=== PATIENT | male | born 1960 | race Caucasian/White ===

== ENCOUNTER 2022-09-02 05:24 | Emergency (ER) | payer BC ==
[~2022-09-02] VITALS: Ht 180.3 cm; Wt 86.2 kg
--- NOTE | 2022-09-02 05:35 | NUR ---
Dr. Caballero in room examinging patient.
[2022-09-02] MEDS ORDERED: HYDROMORPHONE 1 MG/1 ML DISP.SYRIN IM ONE (05:45)
[2022-09-02] MEDS ORDERED: ONDANSETRON ODT 4 MG TAB.RAPDIS SL ONE (05:45)
[2022-09-02] MEDS ORDERED: ONDANSETRON ODT 4 MG TAB.RAPDIS ONE (05:46)
--- NOTE | 2022-09-02 05:46 | NUR ---
Called [facility]. requesting to speak with patient's urologist, Dr. Bishnu Ramirez. Per [facility] , urologist network operations center engineer. Waiting for call back.
[2022-09-02] MEDS ORDERED: HYDROMORPHONE 1 MG/1 ML DISP.SYRIN ONE (05:47)
[2022-09-02] MEDS ORDERED: LIDOCAINE 2% (GLYDO= UROJET) 10 ML JELLY MM ONE ×2 (06:04→06:15)
--- NOTE | 2022-09-02 06:16 | NUR ---
Patient does not wish to proceed with medical care recommended by Dr. Caballero . Patient given information related to possible complications, up to and including , which could occur as a result of leaving the hospital at this time. Patient verbalizes understanding of risks involved due to leaving against medical advice. Patient has signed AMA form.
[2022-09-02 06:17] VITALS: BP 154/89
== END 2022-09-02 06:17 | disposition left against medical advice (07) ==
LOC: ER 05:33
DX: R33.9 Retention of urine, unspecified (principal)
CPT/HCPCS: 99283; J1170; A4663; C1758; Q0162